=== PATIENT | female | born 1990 | race Caucasian/White ===

== ENCOUNTER → 2017-01-27 | Outpatient (CLI) | payer BC ==
[~2017-01-27] MED LIST: GADAVIST IV PRN; GLUCAGON FOR INJ 1 MG VIAL IM STA; GLUCAGON FOR INJ 1 MG VIAL ONE; NURSING VERBAL MED ORDER ONE; SERT50TA PO
--- NOTE | 2017-01-27 09:55 | DIAGNOSTIC IMAGING REPORT ---
MRI enterography ENTEROGRAPHY ABD/PELVIS COMBO CLINICAL HISTORY: K50.012 ileitis. Crohn's disease. TECHNIQUE: Multiaxial MRI acquisition pre and post gadolinium and glucagon administration COMPARISON STUDY: None FINDINGS: Lung bases are clear. Liver spleen and pancreas show uniform signal characteristics throughout. Gallbladder appears normal. There is no biliary ductal distention. Kidneys are uniform in appearance. There is no evidence for hydronephrosis. The colonic bowel pattern is within normal limits. Small bowel pattern is negative for distention. There is circumferential wall thickening of final 10 cm of the terminal ileum. I do not see evidence for to fistulous tract abscess or collection. Fascial planes surrounding the terminal ileum appear to be intact. Cecum is unremarkable. There is no free fluid within the abdomen or pelvic regions. IMPRESSION: 1. Circumferential wall thickening of the final 10 cm of the terminal ileum. 2. No evidence for abscess, collection, or obstruction. 3. No significant fistulous tract formation. 4. The appearance is suggestive of that of an inflammatory bowel process such as Crohn's disease 5. Remainder the study is negative Electronically signed by: Gary Geller M.D. 01/27/2017 9:53 AM Dictated Date/Time: 01/27/2017 9:14 AM
== END | disposition home or self-care (01) ==
LOC: C.MRI 06:40
PROVIDERS: ATTEND Internal Medicine Gastroenterology
DX: K50.012 Crohn's disease of small intestine with intestinal obstruction (principal)

== ENCOUNTER 2017-07-15 15:28 | Emergency (ER) | payer BC ==
[~2017-07-15] VITALS: Ht 167.6 cm; Wt 64.5 kg
[2017-07-15 15:32] VITALS: TEMP 36.9; Ht 167.6 cm; Wt 64.5 kg
--- NOTE | 2017-07-15 16:20 | EMERGENCY ROOM VISIT NOTE ---
History Report prepared by Socrates: Ramirez Jim Under the Supervision of: Dr. Yas Williamson D.O. First contact with patient: 15:56 Chief Complaint: ABDOMINAL PAIN Stated Complaint: CRAMPS, SHARP PAIN RT SIDE, 5 WEEKS PREG Nursing Triage Summary: Cramping on right side, 5 weeks . intermittent pain History of Present Illness The patient is a 26 year old female who presents to the Emergency Room with complaints of sharp, severe, cramping, intermittent, right-sided abdominal pain beginning last night. The patient reports that she occasionally gets left-sided abdominal pain. She notes that she found out she was 5 weeks a few days ago, via a blood test. The patient states that she has not had an ultrasound yet. She reports she called her PCP and was told to go to the ED to be safe. The patient notes that she has been taking Flintstones vitamins regularly until her prescription for vitamins is filled. She reports that she has had an increased urinary frequency, but she has increased her intake of water. She states she just moved into a new home, but denies stretching oddly and lifting anything heavy. The patient reports that she just got a new, large puppy that she has been picking up. She notes that she has a history of Crohn's disease, and this is not her normal flare. The patient states that she was evaluated last week, and she was told that her liver enzymes were elevated. She reports that her GI doctor took her off her Crohn's medication, and she experienced two days of severe dizziness. States this is since improved. 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 She denies diarrhea, fevers, chills, recent sickness, changes in urine, cough, cold, lightheadedness, back pain, vaginal bleeding, and vaginal discharge. Source of History: patient Onset: last night Position: abdomen (right-sided) Symptom Intensity: severe Quality: sharp, cramping Timing: intermittent Associated Symptoms: + urinary symptoms (increased frequency), No fevers, No chills, No cough, No back pain, No diarrhea Note: Denies: recent sickness, lightheadedness, vaginal bleeding, vaginal discharge Review of Systems See HPI for pertinent positives & negatives. A total of 10 systems reviewed and were otherwise negative. Past Medical & Surgical Medical Problems: (1) Crohns disease Family History Patient reports no known family medical history. Social History Smoking Status: Never Smoker Marital Status: in relationship Housing Status: lives with significant other Occupation Status: employed Current/Historical Medications Scheduled Sertraline (Zoloft), 50 MG PO HS Allergies Coded Allergies: No Known Allergies (Unverified , 07/15/17) Physical Exam Vital Signs Date Time Temp Pulse Resp B/P (MAP) Pulse Ox O2 Delivery O2 Flow Rate FiO2 07/15/17 18:19 88 16 134/72 98 07/15/17 17:32 88 16 115/72 95 Room Air 07/15/17 15:32 36.9 102 16 151/104 95 Room Air Physical Exam GENERAL: alert, well appearing, well nourished, no distress, non-toxic EYE EXAM: normal conjunctiva, PERRL and EOM's grossly intact OROPHARYNX: no exudate, no erythema, lips, buccal mucosa, and tongue normal and mucous membranes are moist NECK: supple, no nuchal rigidity, no adenopathy, non-tender LUNGS: Clear to auscultation. Normal chest wall mechanics HEART: no murmurs, S1 normal and S2 normal ABDOMEN: abdomen soft, non-tender, normo-active bowel sounds, no masses, no rebound or guarding. BACK: Back is symmetrical on inspection and there is no deformity, no midline tenderness, no CVA tenderness. SKIN: no rashes and no bruising UPPER EXTREMITIES: upper extremities are grossly normal. LOWER EXTREMITIES: No pitting edema. NEURO EXAM: Normal sensorium, cranial nerves II-XII grossly intact, normal speech, no gross weakness of arms, no gross weakness of legs. Medical Decision & Procedures ER Provider Diagnostic Interpretation: Radiology results have been interpreted by the radiologist and reviewed by me. ULTRASOUND OF THE PELVIS CLINICAL HISTORY: Pelvic pain. Reportedly . COMPARISON STUDY: No priors. TECHNIQUE: Real-time, grayscale, and color flow sonography of the pelvis is performed both transabdominally and endovaginally. Images are reviewed in the transverse and longitudinal planes. FINDINGS: Uterus: The uterus is normal in size and echotexture, measuring 8.7 x 4.4 x 5.0 cm. Gestation: There is a small gestational sac identified in the fundal region with a mean gestational sac diameter of 0.61 cm. This is too small for estimation of dates. A yolk sac is identified. No parts are clearly seen. There is trace subchorionic hemorrhage which measures up to 11 mm. Ovaries: The right ovary is enlarged and contains a predominantly simple cyst which measures up to 6.8 cm. The right ovary measures 6.9 x 6.3 x 7.1 cm and the left ovary measures 3.1 x 2.0 x 1.6 cm. A corpus luteum is noted in the right ovary. Normal Doppler waveforms are shown within both ovaries. Pelvis: There is no free fluid in the cul-de-sac. No concerning adnexal lesion is seen. IMPRESSION: 1. There is a single intrauterine gestation with a yolk sac identified. No parts are clearly seen and this is too small for accurate estimation of dates. Close clinical, laboratory, and sonographic follow-up is recommended. 2. There is trace subchorionic hemorrhage. 3. There is a 7.9 cm simple appearing cyst identified in the right ovary. There is no sonographic evidence of ovarian torsion at the time of examination. Electronically signed by: David Islas M.D. 07/15/2017 5:21 PM Dictated Date/Time: 07/15/2017 5:17 PM Laboratory Results 07/15/17 16:25 Red Blood Count 3.79, Mean Corpuscular Volume 93.4, Mean Corpuscular Hemoglobin 33.8, Mean Corpuscular Hemoglobin Concent 36.2, Mean Platelet Volume 10.3, Neutrophils (%) (Auto) 67.4, Lymphocytes (%) (Auto) 24.4, Monocytes (%) (Auto) 7.9, Eosinophils (%) (Auto) 0.1, Basophils (%) (Auto) 0.1, Neutrophils # (Auto) 4.96, Lymphocytes # (Auto) 1.80, Monocytes # (Auto) 0.58, Eosinophils # (Auto) 0.01, Basophils # (Auto) 0.01 07/15/17 16:25 Test 07/15/17 00:00 07/15/17 16:25 Urine Color YELLOW Urine Appearance CLEAR (CLEAR) Urine pH 6.5 (4.5-7.5) Urine Specific [place] 1.010 (1.000-1.030) Urine Protein NEG (NEG) Urine Glucose (UA) NEG (NEG) Urine Ketones NEG (NEG) Urine Occult Blood NEG (NEG) Urine Nitrite NEG (NEG) Urine Bilirubin NEG (NEG) Urine Urobilinogen NEG (NEG) Urine Leukocyte Esterase NEG (NEG) White Blood Count 7.37 K/uL (4.8-10.8) Red Blood Count 3.79 M/uL (4.2-5.4) Hemoglobin 12.8 g/dL (12.0-16.0) Hematocrit 35.4 % (37-47) Mean Corpuscular Volume 93.4 fL (80-100) Mean Corpuscular Hemoglobin 33.8 pg (25-34) Mean Corpuscular Hemoglobin Concent 36.2 g/dl (32-36) Platelet Count 306 K/uL (130-400) Mean Platelet Volume 10.3 fL (7.4-10.4) Neutrophils (%) (Auto) 67.4 % Lymphocytes (%) (Auto) 24.4 % Monocytes (%) (Auto) 7.9 % Eosinophils (%) (Auto) 0.1 % Basophils (%) (Auto) 0.1 % Neutrophils # (Auto) 4.96 K/uL (1.4-6.5) Lymphocytes # (Auto) 1.80 K/uL (1.2-3.4) Monocytes # (Auto) 0.58 K/uL (0.11-0.59) Eosinophils # (Auto) 0.01 K/uL (0-0.5) Basophils # (Auto) 0.01 K/uL (0-0.2) RDW Standard Deviation 42.2 fL (36.4-46.3) RDW Coefficient of Variation 12.5 % (11.5-14.5) Immature Granulocyte % (Auto) 0.1 % Immature Granulocyte # (Auto) 0.01 K/uL (0.00-0.02) Anion Gap 9.0 mmol/L (3-11) Est Creatinine Clear Calc Drug Dose 130.9 ml/min Estimated GFR () 146.3 Estimated GFR (Non- 126.2 BUN/Creatinine Ratio 12.4 (10-20) Calcium Level 9.5 mg/dl (8.5-10.1) Total Bilirubin 0.5 mg/dl (0.2-1) Aspartate Amino Transf (AST/SGOT) 50 U/L (15-37) Alanine Aminotransferase (ALT/SGPT) 116 U/L (12-78) Alkaline Phosphatase 56 U/L (45-117) Total Protein 8.2 gm/dl (6.4-8.2) Albumin 4.3 gm/dl (3.4-5.0) Globulin 3.9 gm/dl (2.5-4.0) Albumin/Globulin Ratio 1.1 (0.9-2) Human Chorionic Gonadotropin, Qual POS (NEG) Laboratory results per my review. ED Course 1557: The patient was evaluated in room B11B. A complete history and physical exam was performed. 1734: Upon reevaluation, the patient is feeling better. I discussed the findings and the treatment plan with the patient. The patient verbalizes agreement and understanding. She was discharged home. Medical Decision Differential diagnoses includes but is not limited to gastritis, peptic ulcer disease, GERD, gallbladder disease, pancreatitis, small bowel obstruction, acute coronary syndrome, pericarditis, ischemic bowel, irritable bowel disease, irritable bowel syndrome, appendicitis, diverticulitis, malignancy, hernia, urinary tract infection, torsion, /ectopic , perforation, trauma, infectious. Patient well-appearing here, no fevers or leukocytosis, description abdominal pain as sharp and intermittent, with reassuring evaluation here. Ultrasound shows single IUP very early. Patient made aware of all results including right- sided ovarian cyst and small subchorionic hemorrhage. At this time I did not feel patient warranted additional imaging including CAT scan, have a very low suspicion for appendicitis, Crohn's flare, perforation, colitis, bowel obstruction, diverticulitis. I feel patient's pain more likely related to early /uterine stretching/ligament pain and possibly from the right- sided ovarian cyst. Discussed with patient keeping her scheduled [facility] appointment, discussed adequate hydration, and vitamins, diet during , symptoms to watch and return for, she verbalized understanding was agreeable with plan. Medication Reconcilliation Current Medication List: was personally reviewed by me Blood Pressure Screening Patient's blood pressure: Normal blood pressure Blood pressure disposition: Did not require urgent referral Impression Primary Impression: Right lower quadrant abdominal pain Additional Impressions: Ovarian cyst Subchorionic hematoma in first trimester Scribe Attestation The scribe's documentation has been prepared under my direction and personally reviewed by me in its entirety. I confirm that the note above accurately reflects all work, treatment, procedures, and medical decision making performed by me. Departure Information Dispostion Home / Self-Care Referrals Gardenia Abreu PA (PCP) Forms HOME CARE DOCUMENTATION FORM, IMPORTANT VISIT INFORMATION Patient Instructions My Evelyn Álvarez Additional Instructions Please keep your appointment to follow-up with [facility]. Please continue drinking plenty of water daily and taking vitamins. He may use Tylenol as needed for your pain, do not take ibuprofen/Advil/Motrin/Aleve. Please continue to monitor the pain for any changes. If you develop worsening or more persistent pain, notice a change in your bowel movements or have blood with her bowel movement, develop persistent vomiting, fevers and chills, pain in the back, or you have any other new concerns including abnormal vaginal discharge or vaginal bleeding, please return to the ER immediately. Two of your liver numbers were mildly elevated, this is likely residual from recently stopping your Crohn's medications. However please discuss this with your GI doctor as a precaution. They were: AST 50 and ALT 116. Problem Qualifiers Additional Impressions: Weeks of gestation: less than 8 weeks Qualified Codes: Z3A.01 - Less than 8 weeks gestation of Ovarian cyst Laterality: right Qualified Codes: N83.201 - Unspecified ovarian cyst, right side Subchorionic hematoma in first trimester Fetus number: single or unspecified fetus Qualified Codes: O41.8X10 - Other specified disorders of amniotic fluid and membranes, first trimester, not applicable or unspecified; O46.8X1 - Other antepartum hemorrhage, first trimester
[2017-07-15 16:36] LABS: URINE APPEARANCE CLEAR (CLEAR); URINE BILIRUBIN NEG (NEG); URINE COLOR YELLOW; URINE NITRITE NEG (NEG); URINE PH 6.5 (4.5-7.5); UROBILINOGEN NEG (NEG); ZZUR CULT IF INDIC CLEAN CATCH NO
[2017-07-15 16:39] LABS: BASO % 0.1 %; BASO ABS # 0.01 K/uL (0-0.2); COMPLETE YES; EOS % 0.1 %; HEMATOCRIT 35.4 % (37-47); IG% 0.1 %; LYMPH % 24.4 %; MEAN CELL VOLUME 93.4 fL (80-100); MEAN CORPUSCULAR HEMOGLOBIN 33.8 pg (25-34); MEAN CORPUSCULAR HGB CONC 36.2 g/dl (32-36); MEAN PLATELET VOLUME 10.3 fL (7.4-10.4); MONO % 7.9 %; NEUT % 67.4 %; PLATELET COUNT 306 K/uL (130-400); RED BLOOD COUNT 3.79 M/uL (4.2-5.4); WHITE BLOOD COUNT 7.37 K/uL (4.8-10.8)
[2017-07-15 16:57] LABS: BUN/CREATININE RATIO 12.4 (10-20); CALCIUM 9.5 mg/dl (8.5-10.1); CREATININE 0.62 mg/dl (0.60-1.20); POTASSIUM 3.2 mmol/L (3.5-5.1)
[2017-07-15 17:00] LABS: ALB/GLOB RATIO 1.1 (0.9-2)
[2017-07-15 17:06] LABS: MANUAL MICROSCOPIC REQUIRED? NO; REVIEW REQ? NO
[2017-07-15] MEDS ORDERED: SERT50TA PO (17:17)
[2017-07-15 17:20] LABS: PREG INTERNAL NEGATIVE QC NEG CLEAR BACKGROUND; PREG INTERNAL POSITIVE QC POS CONTROL LINE
--- NOTE | 2017-07-15 17:22 | DIAGNOSTIC IMAGING REPORT ---
ULTRASOUND OF THE PELVIS CLINICAL HISTORY: Pelvic pain. Reportedly . COMPARISON STUDY: No priors. TECHNIQUE: Real-time, grayscale, and color flow sonography of the pelvis is performed both transabdominally and endovaginally. Images are reviewed in the transverse and longitudinal planes. FINDINGS: Uterus: The uterus is normal in size and echotexture, measuring 8.7 x 4.4 x 5.0 cm. Gestation: There is a small gestational sac identified in the fundal region with a mean gestational sac diameter of 0.61 cm. This is too small for estimation of dates. A yolk sac is identified. No parts are clearly seen. There is trace subchorionic hemorrhage which measures up to 11 mm. Ovaries: The right ovary is enlarged and contains a predominantly simple cyst which measures up to 6.8 cm. The right ovary measures 6.9 x 6.3 x 7.1 cm and the left ovary measures 3.1 x 2.0 x 1.6 cm. A corpus luteum is noted in the right ovary. Normal Doppler waveforms are shown within both ovaries. Pelvis: There is no free fluid in the cul-de-sac. No concerning adnexal lesion is seen. IMPRESSION: 1. There is a single intrauterine gestation with a yolk sac identified. No parts are clearly seen and this is too small for accurate estimation of dates. Close clinical, laboratory, and sonographic follow-up is recommended. 2. There is trace subchorionic hemorrhage. 3. There is a 7.9 cm simple appearing cyst identified in the right ovary. There is no sonographic evidence of ovarian torsion at the time of examination. Electronically signed by: David Islas M.D. 07/15/2017 5:21 PM Dictated Date/Time: 07/15/2017 5:17 PM
[2017-07-15 18:19] VITALS: BP 134/72; PULSE 88; O2SAT 98
== END 2017-07-15 18:20 | disposition home or self-care (01) ==
LOC: C.EDB 15:29
DX: R10.31 Right lower quadrant pain (principal); Z34.00 Encounter for supervision of normal first pregnancy, unspecified trimester; N83.209 Unspecified ovarian cyst, unspecified side; O20.8 Other hemorrhage in early pregnancy; K50.90 Crohn's disease, unspecified, without complications